=== PATIENT | male | born 1985 | race Caucasian/White ===

== ENCOUNTER 2017-10-29 13:26 | Emergency (ER) | payer SELFPAY ==
[~2017-10-29] VITALS: Ht 190.5 cm; Wt 108.9 kg
--- NOTE | 2017-10-29 13:50 | NUR ---
PT IS IN ROOM #2B, WAITING FOR DR PEARL EVALUATION.
--- NOTE | 2017-10-29 14:16 | NUR ---
DR PEARL EVALUATED THE PT.
[2017-10-29 14:30] LABS: BASOPHILS % (AUTO) 0.3 % (0.0-2.0); EOSINOPHILS # (AUTO) 0.1 K/uL (0.0-0.7); EOSINOPHILS % (AUTO) 0.9 % (0.0-7.0); HEMATOCRIT 42.8 % (36.7-47.1); HEMOGLOBIN 14.4 g/dL (12.5-16.3); LYMPHOCYTES # (AUTO) 1.5 K/uL (20.0-40.0); LYMPHOCYTES % (AUTO) 14.4 % (20.5-51.5); MEAN CORPUSCULAR HEMOGLOBIN 29.9 uug (23.8-33.4); MEAN CORPUSCULAR HGB CONC 34 g/dL (32.5-36.3); MEAN CORPUSCULAR VOLUME 88.8 fL (73.0-96.2); MONOCYTES # (AUTO) 0.5 K/uL (2.0-10.0); MONOCYTES % (AUTO) 4.5 % (0.0-11.0); NEUTROPHILS # (AUTO) 8.4 K/uL (1.8-8.9); NEUTROPHILS % (AUTO) 79.9 % (38.5-71.5); PLATELET COUNT (AUTO) 206 K/uL (152-348); RED BLOOD CELL COUNT(AUTO) 4.81 MIL/uL (4.06-5.63); WHITE BLOOD COUNT (AUTO) 10.5 K/uL (3.6-10.2)
[2017-10-29] MEDS ORDERED: MORPHINE SULFATE 4 MG/1 ML DISP.SYRIN IV ONE ×2 (14:30→17:45)
[2017-10-29] MEDS ORDERED: ONDANSETRON IV *ER 4 MG/2 ML VIAL IV ONE (14:30)
[2017-10-29] MEDS ORDERED: PIPERACILLIN SODIUM/TAZOBACTAM 3.375 G in IV DEXTROSE 5% 50 ML IV ONE (14:30)
[2017-10-29] MEDS ORDERED: IV NORMAL SALINE 1000 ML BAG IV ONE ×3 (14:30→19:15)
[2017-10-29] MEDS ORDERED: MORPHINE SULFATE 4 MG/1 ML DISP.SYRIN ONE ×2 (14:35→17:49)
[2017-10-29] MEDS ORDERED: ONDANSETRON 4 MG/2 ML VIAL ONE (14:36)
[2017-10-29] MEDS ORDERED: PIPERACILLIN/TAZOBACTAM/D5W 50 ML IV ONE (14:36)
[2017-10-29 14:39] LABS: CREATININE 0.9 mg/dL (0.6-1.3); POTASSIUM 3.8 mmol/L (3.5-5.1)
[2017-10-29] MEDS ORDERED: SWABABLE VALVE TRANSFER SET EA MC ONE (14:39)
[2017-10-29] MEDS ORDERED: IV NORMAL SALINE 100 ML ONE (14:39)
[2017-10-29] MEDS ORDERED: IOHEXOL 300MG/ML 100 ML INFUS..BTL ONE (14:39)
[2017-10-29 14:45] LABS: BILIRUBIN,DIRECT 0.1 mg/dL (0.0-0.2); BILIRUBIN,TOTAL 0.5 mg/dL (0.2-1.0); TOTAL PROTEIN, SERUM 7.6 g/dL (6.4-8.2)
[2017-10-29 16:39] LABS: *BILIRUBIN,URIN NEGATIVE (NEGATIVE); *BLOOD, URINE NEGATIVE (NEGATIVE); *CLARITY,URINE CLEAR (CLEAR); *COLOR,URINE YELLOW (YELLOW); *KETONES,URINE NEGATIVE (NEGATIVE); *PROTEIN,URINE NEGATIVE (NEGATIVE); *UROBILINOGEN,URINE 0.2 E.U./dl (NORMAL); LEUKOCYTE ESTERASE ,URINE NEGATIVE (NEGATIVE); NITRITE, URINE NEGATIVE (NEGATIVE); UGLUCOSE NEGATIVE (NEGATIVE)
[2017-10-29 16:56] LABS: BACTERIA,URINE NONE SEEN /HPF (NONE SEEN); RBC,URINE 0-3 /HPF (0-3); SQUAMOUS EPITHELIAL CELL,UR NONE SEEN /HPF (NONE SEEN); WBC,URINE 0-3 /HPF (0-3)
--- NOTE | 2017-10-29 17:15 | NUR ---
Called [facility] for higher level of care transfer ([phone]) and spoke with charge nurse Anay. spoke with Anay as well. Per Anay she will speak to the trauma surgeon and call us back.
--- NOTE | 2017-10-29 17:30 | NUR ---
Correction to previous note at 1715, charge nurse's name at [facility] is Kate and not Anay.
--- NOTE | 2017-10-29 17:30 | NUR ---
Received telephone call from Kate at [facility] who stated they will accept the patient, Dr. Shultz accepting.
--- NOTE | 2017-10-29 17:35 | NUR ---
Called [facility] for ALS transport to [facility] as requested by , per dispatch pt will need to provide payment prior to transport because he lacks healthcare coverage.
--- NOTE | 2017-10-29 17:45 | NUR ---
Spoke with Leida (nursing [facility] house supervisor) regarding transport situation.
--- NOTE | 2017-10-29 17:55 | NUR ---
Received telephone call from Jim ([facility] supervisor) who stated they will transport the patient and to call dispatch in 15 minutes.
--- NOTE | 2017-10-29 18:10 | NUR ---
Called [facility] for ALS transport, eta 30 mins, trip#[id number].
--- NOTE | 2017-10-29 18:39 | NUR ---
REPORT GIVEN TO DELPHINE RING FROM [facility]. PT WAS TRANSFERED TO [facility]IA [facility] REPORT WAS GIVEN TO [facility] RN.
[2017-10-29] MEDS ORDERED: KETOROLAC TROMETHAMINE 30 MG INJ IVP ONE (18:45)
[2017-10-29] MEDS ORDERED: KETOROLAC TROMETHAMINE 30 MG INJ ONE (18:48)
[2017-10-29] MEDS ORDERED: METRONIDAZOLE 500 MG/NS 100 ML PIGGYBACK IV ONE (19:15)
[2017-10-29] MEDS ORDERED: METRONIDAZOLE 500 MG/NS 100ML 100 ML IV ONE (19:23)
== END 2017-10-29 19:30 | disposition short-term general hospital (02) ==
LOC: ER 13:26 → UNDOADMIN 16:57 → MED 16:57 → ER 19:30
DX: S36.60XA Unspecified injury of rectum, initial encounter (principal); W01.198A Fall on same level from slipping, tripping and stumbling with subsequent striking against other object, initial encounter; Y93.89 Activity, other specified; Y92.89 Other specified places as the place of occurrence of the external cause; Y99.8 Other external cause status
CPT/HCPCS: 36415; 83690; 85025; 86850; 86900; 86901; A4663; J1885; J2270; J2405; J2543; J3490; Q9967